=== PATIENT | male | born 1990 | race Caucasian/White ===

== ENCOUNTER 2023-06-04 18:24 | Emergency (ER) | payer BC ==
[~2023-06-04] VITALS: Ht 188 cm; Wt 120.0 kg
[2023-06-04 18:44] VITALS: TEMP 98.2
[2023-06-04] MEDS ORDERED: ibuprofen tablet 400 MG TABLET PO ONE (23:10)
[2023-06-04] MEDS ORDERED: HYDROcodone/acetaminophen 10/325mg tab PO ONE (23:10)
[2023-06-05] MEDS ORDERED: azithromycin 250mg tablet PO ONE (00:20)
[2023-06-05] MEDS ORDERED: CefTRIAXone 500MG IM Kit w/LIDOcaine IM ONE (00:20)
[2023-06-05 01:07] LABS: BILIRUBIN,URINE NEGATIVE (Neg); CLARITY,URINE SLIGHTLY CLOUDY (Clear); COLOR,URINE YELLOW (Yellow); GLUCOSE, URINE NEGATIVE (Neg); KETONES,URINE NEGATIVE (Neg); LEUKOCYTE ESTERASE ,URINE NEGATIVE (Neg); NITRITES, URINE NEGATIVE (Neg); OCCULT BLOOD,URINE NEGATIVE (Neg); PROTEIN,URINE NEGATIVE (Neg); UROBILINOGEN,URINE 0.2 E.U/dL (0.2-1.0)
[2023-06-05 01:11] LABS: UA COLLECTION TYPE VOIDED
[2023-06-05 01:19] LABS: MUCUS STRANDS MANY /LPF (Neg); SQUAMOUS EPITHELIAL CELL,UR FEW /LPF (FEW)
[2023-06-05 01:20] LABS: BACTERIA,URINE FEW /HPF (Neg); RBC,URINE 0-2 /HPF (0-2); WBC,URINE 0-4 /HPF (0-4)
[2023-06-05 01:25] LABS: URINE AMPHETAMINE SCREEN NEGATIVE (Neg); URINE BARBITUATE SCREEN NEGATIVE (Neg); URINE BENZODIAZEPINES SCREEN NEGATIVE (Neg); URINE CANNABINOID SCREEN NEGATIVE (Neg); URINE COCAINE SCREEN NEGATIVE (Neg); URINE OPIATE SCREEN NEGATIVE (Neg); URINE PHENCYCLIDINE SCREEN NEGATIVE (Neg)
[2023-06-05] MEDS ORDERED: DOXY-1 PO (01:58)
[2023-06-05] MEDS ORDERED: IBUP-1984 PO (01:58)
[2023-06-05 02:12] VITALS: BP 121/84; PULSE 53; RESP 12; O2SAT 99
[2023-06-07 05:18] LABS: CHLAMYDIA TRACHOMATIS, NAA Negative (Negative)
== END 2023-06-05 02:14 | disposition home or self-care (01) ==
LOC: ER 18:25
DX: N50.811 Right testicular pain (principal); N45.1 Epididymitis
CPT/HCPCS: 36415; 76870; 80305; 81001; 87491; 87591; 93976; 96372; 99285; J0696